=== PATIENT | male | born 1990 | race Caucasian/White ===

== ENCOUNTER 2020-11-02 10:47 | Emergency (ER) | payer OTHER ==
[~2020-11-02] VITALS: Ht 175.2 cm; Wt 103.0 kg
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
[2020-11-02 11:12] LABS: BASOPHILS # (AUTO) 0.1 10^3/uL (0.0-0.1); BASOPHILS % (AUTO) 1 % (0-10); EOSINOPHILS # (AUTO) 0.3 10^3/uL (0.0-0.3); EOSINOPHILS % (AUTO) 3 % (0-10); HEMATOCRIT 45 % (40-54); HEMOGLOBIN 14.8 g/dL (13.3-17.7); LYMPHOCYTES # (AUTO) 2.5 10^3/uL (1.0-4.0); LYMPHOCYTES % (AUTO) 29 % (12-44); MEAN CORPUSCULAR HEMOGLOBIN 29 pg (25-34); MEAN CORPUSCULAR HGB CONC 33 g/dL (32-36); MEAN CORPUSCULAR VOLUME 88 fL (80-99); MEAN PLATELET VOLUME 9.9 fL (9.0-12.2); MONOCYTES # (AUTO) 1.2 10^3/uL (0.0-1.0); MONOCYTES % (AUTO) 13 % (0-12); NEUTROPHILS # (AUTO) 4.8 10^3/uL (1.8-7.8); NEUTROPHILS % (AUTO) 54 % (42-75); PLATELET COUNT 284 10^3/uL (130-400); WHITE BLOOD COUNT 8.9 10^3/uL (4.3-11.0)
[2020-11-02] MEDS ORDERED: NS 100 ML (IVPB) BAG IV ONE (11:15)
[2020-11-02] MEDS ORDERED: HOLD METFORMIN - RECEIVED CONTRAST 20 ML VIAL IV SCH (11:15)
[2020-11-02] MEDS ORDERED: IOHEXOL 350 MG/ML 100 ML (OMNIPAQUE 350) VIAL IV ONE (11:15)
[2020-11-02] MEDS ORDERED: fentaNYL INJ 100 MCG/2 ML AMP IVP ONE (11:15)
[2020-11-02 11:22] LABS: ALBUMIN 4.8 GM/DL (3.2-4.5)
[2020-11-02 11:23] LABS: CHLORIDE 100 MMOL/L (98-107); POTASSIUM 3.7 MMOL/L (3.6-5.0); SODIUM 142 MMOL/L (135-145)
[2020-11-02 11:24] LABS: CALCIUM 9.7 MG/DL (8.5-10.1)
[2020-11-02 11:25] LABS: GLUCOSE 103 MG/DL (70-105); TOTAL PROTEIN 8.3 GM/DL (6.4-8.2)
[2020-11-02 11:26] LABS: CARBON DIOXIDE 27 MMOL/L (21-32)
[2020-11-02 11:27] LABS: BILIRUBIN,TOTAL 1.1 MG/DL (0.1-1.0)
[2020-11-02 11:28] LABS: ALKALINE PHOSPHATASE 64 U/L (40-136)
[2020-11-02 11:29] LABS: CREATININE SERUM 1.13 MG/DL (0.60-1.30); GFR ESTIMATED 77
[2020-11-02 11:30] LABS: BUN/CREATININE RATIO 8
[2020-11-02 11:31] LABS: ALANINE AMINOTRANSFERASE 126 U/L (0-55)
--- NOTE | 2020-11-02 11:52 | Diagnostic Imaging Report ---
INDICATION: Shortness of breath. COMPARISON: None. FINDINGS: Single view of the chest demonstrates clear lungs bilaterally. The heart is normal. There is no pneumothorax. Osseous structures are normal. IMPRESSION: Negative chest. Dictated by: Dictated on workstation # [id number]
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
[2020-11-02 12:29] VITALS: BP 140/87
== END 2020-11-02 12:23 | disposition home or self-care (01) ==
LOC: ER 10:55
DX: S20.219A Contusion of unspecified front wall of thorax, initial encounter (principal); S30.1XXA Contusion of abdominal wall, initial encounter; S50.812A Abrasion of left forearm, initial encounter; S50.811A Abrasion of right forearm, initial encounter; S00.81XA Abrasion of other part of head, initial encounter; E66.9 Obesity, unspecified; V89.2XXA Person injured in unspecified motor-vehicle accident, traffic, initial encounter
CPT/HCPCS: 70450; 71045; 71260; 72125; 74177; 80053; 85025; 86850; 86900; 86901; G0480; 36415; 80320; 86920

== ENCOUNTER 2022-02-18 10:37 | Emergency (ER) | payer SELFPAY ==
[~2022-02-18] VITALS: Ht 177.8 cm; Wt 99.7 kg
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
[2022-02-18] MEDS ORDERED: NS IV 1000 ML 1,000 ML IV SCH (11:00)
[2022-02-18 11:03] LABS: BASOPHILS # (AUTO) 0.1 10^3/uL (0.0-0.1); BASOPHILS % (AUTO) 1 % (0-10); EOSINOPHILS # (AUTO) 0.2 10^3/uL (0.0-0.3); EOSINOPHILS % (AUTO) 1 % (0-10); HEMATOCRIT 49 % (40-54); HEMOGLOBIN 16.1 g/dL (13.3-17.7); LYMPHOCYTES # (AUTO) 4.9 10^3/uL (1.0-4.0); LYMPHOCYTES % (AUTO) 41 % (12-44); MEAN CORPUSCULAR HEMOGLOBIN 29 pg (25-34); MEAN CORPUSCULAR HGB CONC 33 g/dL (32-36); MEAN CORPUSCULAR VOLUME 87 fL (80-99); MEAN PLATELET VOLUME 10.2 fL (9.0-12.2); MONOCYTES # (AUTO) 0.9 10^3/uL (0.0-1.0); MONOCYTES % (AUTO) 7 % (0-12); NEUTROPHILS # (AUTO) 5.8 10^3/uL (1.8-7.8); NEUTROPHILS % (AUTO) 48 % (42-75); PLATELET COUNT 333 10^3/uL (130-400)
[2022-02-18 11:04] LABS: POTASSIUM 3.2 MMOL/L (3.6-5.0)
[2022-02-18 11:05] LABS: CALCIUM 9.3 MG/DL (8.5-10.1)
[2022-02-18 11:09] LABS: CREATININE SERUM 1.28 MG/DL (0.60-1.30)
--- NOTE | 2022-02-18 11:24 | Diagnostic Imaging Report ---
INDICATION: Patient found unresponsive Heart size and pulmonary vascularity are normal. There is minimal left perihilar atelectasis. There are no effusions or pneumothoraces. IMPRESSION: Minimal left perihilar atelectasis. Dictated by: Dictated on workstation # [id number]
[2022-02-18 13:39] VITALS: BP 115/72
== END 2022-02-18 13:39 | disposition home or self-care (01) ==
LOC: EDUNIT# 10:37 → ER 10:39
DX: T40.601A Poisoning by unspecified narcotics, accidental (unintentional), initial encounter (principal)
CPT/HCPCS: 36415; 71045; 80048; 85025; 93005